=== PATIENT | female | born 1955 | race Caucasian/White ===

== ENCOUNTER → 2022-04-23 | Day surgery (SDC) | payer SELFPAY | LOC: MSO 04-20 21:28 | DX: Z12.11 Encounter for screening for malignant neoplasm of colon (principal); D12.4 Benign neoplasm of descending colon; K21.9 Gastro-esophageal reflux disease without esophagitis; K44.9 Diaphragmatic hernia without obstruction or gangrene; K31.7 Polyp of stomach and duodenum; K22.2 Esophageal obstruction | CPT/HCPCS: 00813; C1769; J2704; J7120 ==

== ENCOUNTER → 2024-09-11 | Outpatient (CLI) | payer OTHER | LOC: MAMMO 15:37 | DX: Z12.31 Encounter for screening mammogram for malignant neoplasm of breast (principal) ==